=== PATIENT | female | born 2005 | race Caucasian/White ===

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

== ENCOUNTER 2023-04-29 21:41 | Emergency (ER) | payer BC, SELFPAY ==
[2023-04-29 21:45] VITALS: BP 118/74; PULSE 78; RESP 16; TEMP 36.7; O2SAT 98; BMI 21.2
[2023-04-29 22:37] LABS: PCR FLU A Negative PCR FLU A (Negative); PCR FLU B Negative PCR FLU B (Negative); SARS PCR* Negative SARS-CoV-2 (Negative)
--- NOTE | 2023-04-29 23:15 | ED.CHESTPAIN ---
HPI - Chest Pain General Chief Complaint: Chest Pain Stated Complaint: chest pain Time Seen by Provider: 04/29/23 21:55 History of Present Illness HPI narrative: This 17-year-old female comes in reporting chest discomfort that began 3 or 4 hours prior to arrival. She states that there was no particular injury event or strenuous activity except she reports that she did have a sexual encounter with her partner and the pain seemed to occur soon after that. She reports that the pain is on the left side of her sternum and on her left lateral ribs. She reports that the pain is reproducible when taking a deep breath and with lifting her arms up above her head. She does not report any nausea, vomiting, lightheadedness, shortness of breath, or diaphoresis. She does not have any exercise intolerance. Related Data Home Medications Medication Instructions Recorded Confirmed sertraline 100 mg tablet 100 mg PO DAILY 12/29/21 04/29/23 norgestimate 0.25 mg-ethinyl 1 tab PO DAILY 04/29/23 04/29/23 estradiol 35 mcg tablet (Estarylla) sertraline 50 mg tablet 50 mg PO DAILY 04/29/23 04/29/23 Previous Rx's Medication Instructions Recorded sertraline 200 mg capsule 200 mg PO QDAY #90 caps 06/24/22 aripiprazole 5 mg tablet 5 mg PO QPM #90 tabs 09/19/22 Allergies Allergy/AdvReac Type Severity Reaction Status Date / Time No Known Drug Allergies Allergy Verified 06/23/22 16:31 Review of Systems Status of ROS Reports: 10 or more systems reviewed and unremarkable except as noted in History and below Narrative Constitutional: No fevers, no weight gain or loss. Eyes: No discharge. No vision changes. HENT: No congestion, no sore throat, no ear pain. Cardiovascular: No palpitations. Respiratory: No shortness of breath, no wheezes, no cough. Gastrointestinal: No abdominal pain, no vomiting, no diarrhea. Genitourinary: No dysuria, no hematuria. Musculoskeletal: Normal range of motion. Skin: No rashes, no pruritis. Neurological: No dizziness, weakness, sensory change, speech change. Endo/Heme/Allergies: No bruising or bleeding. No polydipsia. Pysch: no suicidality, no anxiety, no insomnia. All other systems reviewed and are negative. [facility] Medical History (Updated 04/29/23 @ 23:19 by Jourdan Gtz MD) Nightmares ?F51.5 - Nightmare disorder (ICD-10) Insomnia ?G47.00 - Insomnia, unspecified (ICD-10) PTSD (post-traumatic stress disorder) ?F43.10 - Post-traumatic stress disorder, unspecified (ICD-10) Compulsive skin picking ?F42.4 - Excoriation (skin-picking) disorder (ICD-10) Depression ?F32.A - Depression, unspecified (ICD-10) History of suicide attempt ?Z91.51 - Personal history of suicidal behavior (ICD-10) Suicide attempt by acetaminophen overdose ?T39.1X2A - Poisoning by 4-Aminophenol derivatives, intentional self-harm, initial encounter (ICD-10) Oppositional defiant disorder of childhood or adolescence ?F91.3 - Oppositional defiant disorder (ICD-10) Anxiety ?F41.9 - Anxiety disorder, unspecified (ICD-10) Suicidal ideations ?R45.851 - Suicidal ideations (ICD-10) Depression with anxiety ?F41.8 - Other specified anxiety disorders (ICD-10) Scoliosis ?M41.9 - Scoliosis, unspecified (ICD-10) Surgical History No significant past surgical history Social History Highest level of school completed/degree received: some college, no degree Smoking Status: Never smoker Do you use any of these nicotine containing products: None Second hand tobacco smoke exposure: No How often do you have a drink containing alcohol: never How often do you have six or more drinks on one occasion: Never AUDIT-C Alcohol total score: 0 Non-prescribed substance use: denies use Caffeine: No Little interest or pleasure in doing things: several days Feeling down, depressed, or hopeless: more than half the days service: No Exam Narrative Exam Narrative: Constitutional: Well-developed, well-nourished, no acute distress. HEENT: Normocephalic, atraumatic. Neck: Normal range of motion. Nontender. Supple. Heart: Regular. No murmurs. Normal rate. Intact distal pulses. Lungs: Clear to auscultation. No wheezes, rhonchi, or rales. Chest: Normal appearance without any sign of external injury. Pain is reproducible along the left sternal border and left lateral ribs with palpation. Abdomen: Normal bowel sounds. Nontender. No rebound tenderness. Genitalia: Deferred. Back: No midline tenderness. Normal range of motion. Extremities: Normal range of motion. No injury. Skin: Intact. No rash. Warm. No erythema or pallor. Neurologic: No altered sensation. No weakness. Alert and oriented. Psychiatric: No suicidality. No anxiety or depression. No insomnia. Nursing notes and vitals signs are reviewed. Const Vital Signs, click to edit/add: Vital Signs - 24 hr 04/29/23 21:45 Temperature 98.1 F Pulse Rate [Pulse Oximeter] 78 Respiratory Rate 16 Blood Pressure [Right Upper Arm] 118/74 Pulse Oximetry 98 Oxygen Delivery Method Room Air Course Vital Signs Vital signs: Initial Vital Signs Temperature 98.1 F 04/29/23 21:45 Temperature Source Oral 04/29/23 21:45 Pulse Rate 78 04/29/23 21:45 Respiratory Rate 16 04/29/23 21:45 Blood Pressure 118/74 04/29/23 21:45 Blood Pressure Mean 88 04/29/23 21:45 Blood Pressure Position Sitting 04/29/23 21:45 Pulse Oximetry 98 04/29/23 21:45 Oxygen Delivery Method Room Air 04/29/23 21:45 Vital Signs Temperature 98.1 F 04/29/23 21:45 Pulse Rate 78 04/29/23 21:45 Respiratory Rate 16 04/29/23 21:45 Blood Pressure 118/74 04/29/23 21:45 Pulse Oximetry 98 04/29/23 21:45 Oxygen Delivery Method Room Air 04/29/23 21:45 Temperature 98.1 F 04/29/23 21:45 Pulse Rate 78 04/29/23 21:45 Respiratory Rate 16 04/29/23 21:45 Blood Pressure 118/74 04/29/23 21:45 Pulse Oximetry 98 04/29/23 21:45 Oxygen Delivery Method Room Air 04/29/23 21:45 MDM - Chest Pain MDM Narrative Medical decision making narrative: This patient comes in reporting some chest discomfort as described above. She does not have any cardiac risk factors and arrives with normal vital signs. Her chest pain is reproducible with certain movements and deep breaths suggesting chest wall pain. An EKG was obtained which appears normal. I did discuss lab and imaging options with the patient and in a process of shared decision making these were declined for now. The patient did receive a prescription for Toradol. Lab Data Labs: Lab Results 04/29/23 Range/Units 21:49 SARS-CoV-2 (PCR) Negative SARS-CoV-2 (Negative) Influenza Type A (PCR) Negative PCR FLU A (Negative) Influenza Type B (PCR) Negative PCR FLU B (Negative) ECG Data Attestation: I personally reviewed and interpreted this ECG as follows: Interpretation: Normal sinus rhythm. Rate is 74 beats per minute. There are no ST or T-wave abnormalities. Discharge Plan Discharge Clinical Impression: Chest wall pain Patient Disposition: Home, Self-Care Condition: Stable Additional Instructions: Use medication as needed and indicated. Follow up with MD return if worsening. Prescriptions: No Action sertraline 200 mg capsule 200 mg PO QDAY Qty: 90 0RF Hold Instructions: Doctor's Order sertraline 100 mg tablet 100 mg PO DAILY Hold Instructions: Resume on 01/13/22. resume at 50mg on Thursday the ; increase back to 100mg one week later norgestimate-ethinyl estradiol [Estarylla] 0.25-35 mg-mcg tablet 1 tab PO DAILY sertraline 50 mg tablet 50 mg PO DAILY aripiprazole 5 mg tablet 5 mg PO QPM Qty: 90 0RF Hold Instructions: Doctor's Order Follow Up/Referrals: Provider,Not a Local [Primary Care Provider] - Stand Alone Forms: Teamleader Info Instructions
== END 2023-04-29 23:31 | disposition home or self-care (01) ==
LOC: ED 23:29
PROVIDERS: Emergency Provider Emergency Medicine Emergency Medical Services
DX: R07.89 Other chest pain (principal)
CPT/HCPCS: 87631; 93005; 99284

== ENCOUNTER 2023-06-01 21:37 | Emergency (ER) | payer BC, SELFPAY ==
[2023-06-01 21:46] VITALS: BP 111/71; PULSE 74; RESP 16; TEMP 37; O2SAT 97; BMI 21.2
--- NOTE | 2023-06-01 21:53 | ED_ITS ---
HPI - Chest Pain General Time Seen by Provider: 21:53 Date Seen: 06/01/23 Chief Complaint: Chest Pain Stated Complaint: Chest pain/nausea from the pain Time Seen by Provider: 06/01/23 21:53 Source: patient, RN notes reviewed and old records reviewed Mode of arrival: ambulatory Limitations: no limitations History of Present Illness HPI narrative: Patient is a 17-year-old [facility] [employer] student with history of anxiety, chest pain who comes to the emergency room for evaluation regarding ongoing chest pain. Jeny notes the onset of chest pain in April and I do look to that date which is April 29. She cannot recall any specific injury or movement but noted the onset of chest pain that was mainly left-sided that evening. She was seen here in the emergency room at which time shared decision making was done and patient elected not have any further test. She notes that the pain has continued and especially increased over the last week. She states that Tylenol and ibuprofen do not help and she has had difficult time focusing on her classes because of the discomfort. She now needs help showering and even obtaining food. She states that she is occasionally short of breath and she will wake up in the middle of the night and have a difficult time breathing. She feels that the shortness of breath may be worse while she is sitting. She also notes nausea from the pain and she has had a very poor appetite. She denies any cough or fever. She does note in the past she has experienced chest pain an EKG was done which was reassuring and she was told that it was likely because her breasts were growing but she does not feel that that is the case now as she has an adult. She notes that the pain was initially left-sided with some in the middle now it is mainly in the center lower chest with radiation into the back. Again this is been worsening over the past week. She states it hurts more when she is sitting. She has improvement of her pain if she sleeps on her right side. She denies any blister formation or discoloration of the chest or breast. Her only medication is sertraline and the dosage has not changed since March. Denies any possibility of as today is the 1st day of her period. Her significant other is present. He is stroking her hair, kissing her arm while I am examining her. He is extremely attentive. Family history includes hypertension. No history of heart disease or known clotting disorders. No known early unexplained deaths in the family. Jeny does not smoke use alcohol or use drugs. Related Data Home Medications Medication Instructions Recorded Confirmed sertraline 100 mg tablet 100 mg PO DAILY 12/29/21 06/01/23 norgestimate 0.25 mg-ethinyl 1 tab PO DAILY 04/29/23 06/01/23 estradiol 35 mcg tablet (Estarylla) sertraline 50 mg tablet 50 mg PO DAILY 04/29/23 04/29/23 Previous Rx's Medication Instructions Recorded sertraline 200 mg capsule 200 mg PO QDAY #90 caps 06/24/22 aripiprazole 5 mg tablet 5 mg PO QPM #90 tabs 09/19/22 Allergies Allergy/AdvReac Type Severity Reaction Status Date / Time No Known Drug Allergies Allergy Verified 06/23/22 16:31 Review of Systems Status of ROS Reports: 10 or more systems reviewed and unremarkable except as noted in History and below Const Denies: fever or chills Eyes Denies: change in vision ENMT Denies: throat pain, neck pain, throat swelling, difficulty swallowing or nasal discharge Cardio Reports: chest pain and shortness of breath with exertion; Denies: palpitations, edema or swelling of feet/ankles Resp Reports: shortness of breath; Denies: cough or wheezing GI Reports: nausea; Denies: abdominal pain, vomiting, diarrhea, constipation or difficulty swallowing Denies: painful urination or urinary frequency Musculo Denies: neck pain Neuro Denies: headache Allergy/Immuno Denies: throat swelling or wheezing PFSH [facility] Medical History Nightmares ?F51.5 - Nightmare disorder (ICD-10) Insomnia ?G47.00 - Insomnia, unspecified (ICD-10) PTSD (post-traumatic stress disorder) ?F43.10 - Post-traumatic stress disorder, unspecified (ICD-10) Compulsive skin picking ?F42.4 - Excoriation (skin-picking) disorder (ICD-10) Depression ?F32.A - Depression, unspecified (ICD-10) History of suicide attempt ?Z91.51 - Personal history of suicidal behavior (ICD-10) Suicide attempt by acetaminophen overdose ?T39.1X2A - Poisoning by 4-Aminophenol derivatives, intentional self-harm, initial encounter (ICD-10) Oppositional defiant disorder of childhood or adolescence ?F91.3 - Oppositional defiant disorder (ICD-10) Anxiety ?F41.9 - Anxiety disorder, unspecified (ICD-10) Suicidal ideations ?R45.851 - Suicidal ideations (ICD-10) Depression with anxiety ?F41.8 - Other specified anxiety disorders (ICD-10) Scoliosis ?M41.9 - Scoliosis, unspecified (ICD-10) Surgical History No significant past surgical history Social History Highest level of school completed/degree received: some college, no degree Smoking Status: Never smoker Do you use any of these nicotine containing products: None Second hand tobacco smoke exposure: No How often do you have a drink containing alcohol: never How often do you have six or more drinks on one occasion: Never AUDIT-C Alcohol total score: 0 Non-prescribed substance use: denies use Caffeine: No Little interest or pleasure in doing things: several days Feeling down, depressed, or hopeless: more than half the days service: No Exam Narrative Exam Narrative: Alert and oriented. Very articulate and thoughtful. External ears eyes nose clear. Heart with regular rate and rhythm. I do not auscultate any unusual heart sounds. Patient does have a 1 to 2/6 systolic murmur. This is normal per my assessment. I do have her lean forward and I do not auscultate any particular rub. Lungs are clear in all lung cartwrihgt. Palpation down thoracic spine without tenderness. No pain with percussion over a CVA bilaterally. Abdomen is soft nontender. No pain in the right upper quadrant or epigastrium. She does have tenderness noted in the lower aspect of the sternum and some chest wall tenderness on the superior medial left breast but there are no unusual skin markings, erythema, ecchymosis or blistering. She does have increased sternal pain if I compress ribs from the out lateral aspects bilaterally but no pain with compression just from the left. Lower extremities are without calf tenderness negative Homans sign there is no edema and pedal pulses are symmetri cony and strong. Const Vital Signs, click to edit/add: Vital Signs - 24 hr 06/01/23 21:46 Temperature 98.6 F Pulse Rate [Pulse Oximeter] 74 Respiratory Rate 16 Blood Pressure [Right Upper Arm] 111/71 Pulse Oximetry 97 Oxygen Delivery Method Room Air Documenting provider has reviewed patient's vital signs: yes Course Course ED Course: Differential diagnosis includes but is not limited to chest wall pain, costochondritis, radiculitis, PE, pneumothorax, pericarditis, myocarditis, shingles, anxiety, gastritis, biliary colic, GERD. Will place IV and use Toradol 15 mg IV to see if this helps patient with discomfort. Will add chest x-ray, EKG, troponin, CBC, D-dimer, comprehensive panel, CRP to laboratory values. Patient is in agreement with this plan. Reevaluation(s) Reevaluation #1: Patient notes that the Toradol helped somewhat initially. She has remained stable with no concerning vital signs. Her laboratory values are reassuring with a normal D-dimer and negative troponin. I elected to do 1 troponin given the length of time she has been complaining of discomfort. EKG was reassuring. Vital Signs Vital signs: Initial Vital Signs Temperature 98.6 F 06/01/23 21:46 Temperature Source Temporal Artery Scan 06/01/23 21:46 Pulse Rate 74 06/01/23 21:46 Respiratory Rate 16 06/01/23 21:46 Blood Pressure 111/71 06/01/23 21:46 Blood Pressure Mean 84 06/01/23 21:46 Blood Pressure Position Sitting 06/01/23 21:46 Pulse Oximetry 97 06/01/23 21:46 Oxygen Delivery Method Room Air 06/01/23 21:46 Vital Signs Temperature 98.6 F 06/01/23 21:46 Pulse Rate 74 06/01/23 21:46 Respiratory Rate 16 06/01/23 21:46 Blood Pressure 111/71 06/01/23 21:46 Pulse Oximetry 97 06/01/23 21:46 Oxygen Delivery Method Room Air 06/01/23 21:46 Temperature 98.6 F 06/01/23 21:46 Pulse Rate 74 06/01/23 21:46 Respiratory Rate 16 06/01/23 21:46 Blood Pressure 111/71 06/01/23 21:46 Pulse Oximetry 97 06/01/23 21:46 Oxygen Delivery Method Room Air 06/01/23 21:46 Medications Administered Medications: Discontinued Medications Generic Name Dose Route Start Last Admin Trade Name Osiel PRN Reason Stop Dose Admin Ketorolac Tromethamine 15 mg 06/01/23 22:15 06/01/23 22:32 Ketorolac 15 Mg/Ml Inj IVP 06/01/23 22:16 15 mg ONCE ONE Administration MDM - Chest Pain MDM Narrative Medical decision making narrative: 1. Atypical chest pain-at this time EKG is reassuring and troponin is negative. Further, D-dimer is negative and patient has no evidence of lower extremity edema or calf tenderness or history of DVT. Patient has a chest x-ray that shows no abnormalities. Laboratory values are also reassuring with a negative leukocytosis and normal CRP. I do not have any evidence of a life-threatening illness at this time. Lipase is negative, D-dimer is negative and other laboratory values are reassuring. Boyfriend does tell me that while he was assisting Jeny in showering they noticed that her left nipple was somewhat red. I did not notice read breast or rash initially. However that has resolved. She denies any discharge or fever from this area but I would ask that they continue to monitor it. This was brought up briefly at the end of the ED stay. Jeny had transient improvement of her symptoms with Toradol. She has no evidence of pericarditis, myocarditis, PE, pneumothorax. Her exam certainly suggest a musculoskeletal etiology. Jeny is receptive to a trial of low-dose steroids as an anti-inflammatory. We did discuss the side effects which can include making you feel jittery. We will use 10 mg p.o. b.i.d. as she is a petite individual. This will be for 5 days. I would like to give her some stomach protection with omeprazole 20 mg daily. Will give her 1st dose here in the ED tonight. I would like her to take this medication for 7 days. 2. Anxiety-I do think that anxiety is playing a role in Jeny is pain. To what extent I am not sure. I do suggest follow-up with mental health team regarding this. She may want to increased visits to counseling as well. 2. Disposition-home at this time. Significant other does request a note for professors. Jeny states that they have been having some negative interactions with the [facility]. I did write a note as I do suspect that Jeny will need further follow-up and I am recommending that she establish care at the [facility]. Medical Records Data Attestation: I reviewed the patient's medical records. Lab Data Attestation: I reviewed the patient's lab results. Labs: Lab Results 06/01/23 06/01/23 Range/Units 22:08 22:25 WBC 6.15 (4.50-11.00) K/uL RBC 4.13 (4.00-5.20) m/uL Hgb 12.6 (12.0-16.0) gm/dL Hct 38.5 (33.0-51.0) % MCV 93 (80-100) fL MCH 31 (26-34) pg MCHC 33 (32-36) gm/dL RDW Coeff of Michelle 12.5 (11.5-15.5) % Plt Count 268 (140-440) K/uL Neut % (Auto) 54.3 (42.0-72.0) % Lymph % (Auto) 31.4 (20-44) % Iroquois % (Auto) 9.1 (0.0-11.0) % Eos % (Auto) 4.4 (0.0-7.0) % Baso % (Auto) 0.3 (0.0-3.0) % Neut # (Auto) 3.34 (1.7-7.0) K/uL Lymph # (Auto) 1.93 (0.90-2.90) K/uL [place]quois # (Auto) 0.60 (0.00-0.90) K/UL Eos # (Auto) 0.27 (0.00-0.50) K/uL Baso # (Auto) 0.02 (0.00-0.30) K/uL Abs Immat Gran (auto) 0.03 (0.00-0.30) K/uL Imm/Tot Granulo (auto) 0.5 % D-Dimer Quant (PE/DVT) 0.32 (0.00-0.50) ug/ml Sodium 139 (135-149) mmol/L Potassium 3.7 (3.6-5.1) mmol/L Chloride 107 (96-114) mmol/L Carbon Dioxide 24 (20-32) mmol/L Anion Gap 8 (7-15) mEq/L BUN 12 (5-24) mg/dL Creatinine 0.6 (0.6-1.2) mg/dL Estimated Creat Clear 113.80 Estimated GFR 133 ml/min Glucose 95 (60-115) mg/dL Calcium 9.4 (8.7-10.8) mg/dL Total Bilirubin 0.2 (0.1-1.5) mg/dL AST 22 (12-35) U/L ALT 16 (4-35) U/L Alkaline Phosphatase 74 (40-150) U/L Total Protein 7.3 (6.0-8.3) g/dL Albumin 4.1 (3.3-5.0) g/dL Lipase 75 (23-300) U/L POC Troponin I 0.00 L (0.01-0.04) ng/ml Imaging Data Chest x-ray: Attestation: I have reviewed the pertinent imaging results. My impression: No evidence of widened mediastinum pneumothorax or enlarged heart. Radiologist's impression: Cardiovascular/Mediastinum: Normal heart size. Unremarkable. Lungs: No focal consolidation. Airways: Trachea remains midline. Pleura: No pleural effusions or pneumothorax. Bones: No acute osseous abnormalities. Mild dextroscoliosis of the midthoracic spine. Upper abdomen: Unremarkable. IMPRESSION: No acute cardiopulmonary process. No acute displaced rib fractures, pleural effusions or pneumothorax. ECG Data Attestation: I personally reviewed and interpreted this ECG as follows: ECG interpretation date: 06/01/23 Interpretation: EKG by my read shows sinus rhythm at a rate of 70. I do not note any acute ST or T-wave changes. QT corrected and MT intervals within normal limits. Discharge Plan Discharge Clinical Impression: Atypical chest pain Patient Disposition: Home, Self-Care Condition: Unchanged Additional Instructions: Recommend continuing omeprazole 20 mg every evening for the next 7 days. This will be [id number] as generic omeprazole or labeled as Prilosec. One tablet is 20 mg. I recommend starting low dose of steroids for what I suspect is costochondritis or inflammation of the chest wall. This medication called prednisone can be obtained through our [employer] machine. I recommend following up and establishment of care with the [facility] in [place]. Physicians who I would suggest include doctors Gina Jimenez Detert. There are other good physicians there as well as the PAs and nurse practitioners. I do suspect that there is a level of anxiety that is part of your discomfort and recommend following up with your mental health physicians for evaluation. A counselor may also be helpful. I have written a note for your professors or barber stylist. Return to the emergency room for worsening symptoms. Prescriptions: No Action sertraline 200 mg capsule 200 mg PO QDAY Qty: 90 0RF Hold Instructions: Doctor's Order sertraline 100 mg tablet 100 mg PO DAILY Hold Instructions: Resume on 01/13/22. resume at 50mg on Thursday the ; increase back to 100mg one week later norgestimate-ethinyl estradiol [Estarylla] 0.25-35 mg-mcg tablet 1 tab PO DAILY Hold Instructions: unknown sertraline 50 mg tablet 50 mg PO DAILY aripiprazole 5 mg tablet 5 mg PO QPM Qty: 90 0RF Hold Instructions: Doctor's Order Follow Up/Referrals: Provider,Not a Local [Primary Care Provider] - Stand Alone Forms: [employer], [employer] Info Instructions
--- NOTE | 2023-06-01 22:08 | XR_ITS ---
Patient: LC ESCALANTE Facility:?[facility] Patient ID:?[id number] Site Patient ID:?[id number]. Site :?[id number] Study:?XRay-Chest 1V PORTABLE-06/01/2023 10:47:10 PM Ordering Physician:ADELFO Final Report: INDICATION: Chest pain for 1 month. TECHNIQUE: Chest radiograph, 1 view. COMPARISON: None. FINDINGS: Cardiovascular/Mediastinum: Normal heart size. Unremarkable. Lungs: No focal consolidation. Airways: Trachea remains midline. Pleura: No pleural effusions or pneumothorax. Bones: No acute osseous abnormalities. Mild dextroscoliosis of the midthoracic spine. Upper abdomen: Unremarkable. IMPRESSION: No acute cardiopulmonary process. No acute displaced rib fractures, pleural effusions or pneumothorax. Dictated by Tee Bruce MD @ 06/01/2023 11:45:14 PM Signed by:?Tee Bruce MD @06/01/2023 11:45:14 PM (Electronic Signature)
[2023-06-01] MEDS: KETOROLAC 15 MG/ML inj IVP (22:32)
[2023-06-01 22:49] LABS: Basophils Absolute Auto 0.02 K/uL (0.00-0.30); Basophils Percent Auto 0.3 % (0.0-3.0); Eosinophils Absolute Auto 0.27 K/uL (0.00-0.50); Eosinophils Percent Auto 4.4 % (0.0-7.0); Hematocrit 38.5 % (33.0-51.0); Hemoglobin* 12.6 gm/dL (12.0-16.0); Immature Granulocytes Abs Auto 0.03 K/uL (0.00-0.30); Immature Granulocytes Pct Auto 0.5 %; Lymphocytes Absolute Auto 1.93 K/uL (0.90-2.90); Lymphocytes Percent Auto 31.4 % (20-44); Mean Corpuscular HGB Conc 33 gm/dL (32-36); Mean Corpuscular Hemoglobin 31 pg (26-34); Mean Corpuscular Volume 93 fL (80-100); Monocytes Percent Auto 9.1 % (0.0-11.0); Neutrophils Absolute Auto 3.34 K/uL (1.7-7.0); Neutrophils Percent Auto 54.3 % (42.0-72.0); Platelet Count* 268 K/uL (140-440); RDW Coefficient of Variation % 12.5 % (11.5-15.5); Red Blood Count 4.13 m/uL (4.00-5.20); White Blood Count* 6.15 K/uL (4.50-11.00)
[2023-06-01 22:57] LABS: Slide Review Reflex No
[2023-06-01 23:01] LABS: Albumin* 4.1 g/dL (3.3-5.0)
[2023-06-01 23:02] LABS: Chloride* 107 mmol/L (96-114); Potassium* 3.7 mmol/L (3.6-5.1); Sodium* 139 mmol/L (135-149)
[2023-06-01 23:04] LABS: Anion Gap 8 mEq/L (7-15); Aspartate Amino Transferase* 22 U/L (12-35); Bilirubin Total* 0.2 mg/dL (0.1-1.5); Carbon Dioxide* 24 mmol/L (20-32); Creatinine* 0.6 mg/dL (0.6-1.2); Estimated Glomerular Filt Rate 133 ml/min
[2023-06-01 23:05] LABS: Alanine Aminotransferase* 16 U/L (4-35); Alkaline Phosphatase* 74 U/L (40-150); Blood Urea Nitrogen* 12 mg/dL (5-24); Calcium* 9.4 mg/dL (8.7-10.8); Glucose* 95 mg/dL (60-115); Lipase* 75 U/L (23-300); Total Protein* 7.3 g/dL (6.0-8.3)
[2023-06-01 23:52] LABS: D Dimer Quantitative* 0.32 ug/ml (0.00-0.50)
[2023-06-02] MEDS: OMEPRAZOLE 20 MG CAPSULE DR PO (00:40)
== END 2023-06-02 00:41 | disposition home or self-care (01) ==
PROVIDERS: Emergency Provider Family Medicine
DX: R07.9 Chest pain, unspecified (principal)
CPT/HCPCS: 36415; 71045; 80053; 83690; 84484; 85025; 85379; 93005; 96374; 99284; 99285; A9270; J1885